=== PATIENT | female | born 1960 | race Asian ===

== ENCOUNTER → 2020-12-19 | Outpatient (CLI) | payer OTHER | END | disposition home or self-care (01) | LOC: RADPV 11:45 | PROVIDERS: ATTEND Internal Medicine Cardiovascular Disease | DX: R07.9 Chest pain, unspecified (principal) | CPT/HCPCS: 93306 ==

== ENCOUNTER → 2021-05-04 | Outpatient (CLI) | payer OTHER ==
[~2021-05-04] MED LIST: AMINOPHYLLINE 25 MG/ML 10 ML VIAL IV ONE; AMINOPHYLLINE 25 MG/ML 10 ML VIAL IVP ONE; REGADENOSON 0.4 MG/5 ML PF SYRINGE IVP ONE; SESTAMIBI TC99M/UD ISOTOPE 1 EA INJ INJ ONE
[2021-05-04 10:12] VITALS: BP 121/73
[2021-05-04 10:27] VITALS: BP 129/71
[2021-05-04 10:39] VITALS: BP 124/78
== END | disposition home or self-care (01) ==
LOC: CARDMN 08:12
PROVIDERS: ATTEND Internal Medicine Cardiovascular Disease
DX: I25.9 Chronic ischemic heart disease, unspecified (principal)
CPT/HCPCS: 78452; 93017; A9500; J0280; J2785